=== PATIENT | female | born 1975 | race Two or more races ===

== ENCOUNTER 2021-01-22 06:35 | Day surgery (SDC) | payer OTHER ==
[~2021-01-22 06:35] MED LIST: BENADRYL25 MG; CHILDREN'S ASPI81 MG PO; MOBIC PO
== END 2021-01-22 16:22 | disposition home or self-care (01) ==
LOC: CIR.AMB 06:35
PROVIDERS: ATTEND Obstetrics & Gynecology Maternal & Fetal Medicine
DX: N85.01 Benign endometrial hyperplasia (principal); Z20.822 Contact with and (suspected) exposure to COVID-19